=== PATIENT | female | born 1960 | race Caucasian/White ===

== ENCOUNTER 2016-12-16 12:47 | Emergency (ER) | payer OTHER ==
--- NOTE | ~2016-12-16 | CT2 ---
[facility]. [facility] A Service of [facility] RADIOLOGY TEXT RESULTS PATIENT: ANJEL DICKSON LOCATION: SED : 62 UNIT #: [id number] AGE: [address]: Sanchez Barker MD SEX: F ORDER DR: [id number] [place] [id number] E MR#: [id number] Acc #: [id number] NAME: ANJEL DICKSON : 1960 SEX: F STUDY DATE/TIME: 12/16/2016 14:35 UNIT: SED ROOM: STUDY DESCRIPTION: CT Abd and Pelv W Cont Attending Physician: Sanchez Barker M.D. Ordering Physician: Sanchez Barker M.D. Primary Care Physician: Vinicius Hyman M.D. MEDICAL IMAGING REPORT This report is preliminary unless electronic signature is present. EXAM CT abdomen and pelvis with contrast 12/16/2016 INDICATIONS Vomiting and cramping since 07:00 a.m. today, mid to lower abdominal pain for [address] of the abdomen and pelvis was performed following the administration of IV contrast. Coronal and sagittal reformatted images were obtained. This CT exam was performed with one or more of the following radiation dose reduction techniques: automatic exposure control, adjustment of mA and/or kV according to patient size, and iterative reconstruction. No comparisons FINDINGS Lung bases are clear. Focal fatty infiltration of the liver adjacent to the falciform ligament. The gallbladder and spleen are unremarkable. The kidneys are unremarkable. The adrenal glands and pancreas are unremarkable. PELVIS: Colon is unremarkable. The appendix is normal. No free fluid. Remainder of the pelvis is unremarkable. Bone windows demonstrate degenerative changes of the lumbar spine with scoliosis as well as degenerative discogenic sclerosis at multiple levels. IMPRESSION 1. There are no acute findings. 2. Gallbladder and appendix are both normal. No evidence for bowel obstruction. 1. [facility] A Service of [facility] RADIOLOGY TEXT RESULTS PATIENT: ANJEL DICKSON LOCATION: SED : 62 UNIT #: [id number] AGE: [address]: Sanchez Barker MD SEX: F ORDER DR: Dictated by... Bebeto Boyd M.D. THIS IS AN ELECTRONICALLY VERIFIED REPORT Bebeto Boyd M.D. at 12/18/2016 9:07 AM Juancho TD: 12/16/2016 17:42 JOB #: [id number] MEDICAL IMAGING REPORT Page 1 of 1
[~2016-12-16 12:47] MED LIST: AMITRIPTYLINE H25 MG; BP MED; FLEXERIL10 M1 PO; LISINOPRIL PO; LISINOPRIL10 MG PO; LORTAB 5/500 TA1 TA1 PO; LORTAB 7.5-3251 EACH PO; LORTAB 7.5-5001 TAB PO; MOTRIN600 MG; NAPROXEN PO; PREDNISONE PO; TYLENOL #3 PO; VOLTAREN50 MG PO; ZOFRAN ODT4 MG PO; ZOLOFT PO
[2016-12-16] MEDS ORDERED: IBUPROFEN PO (12:49)
[2016-12-16] MEDS ORDERED: NEURONTIN800 MG PO (12:49)
[2016-12-16] MEDS ORDERED: ZOLOFT PO (12:49)
[2016-12-16] MEDS ORDERED: LISINOPRIL20 MG PO (12:50)
[2016-12-16] MEDS ORDERED: PERCOCET5/325 PO (12:50)
[2016-12-16 13:52] LABS: BASOPHIL# 0.1 X10e3 (0-0.3); BASOPHIL% 0.9 % (0-2.5); EOSINOPHIL% 0.1 % (0.0-7.0); HEMATOCRIT 44.1 % (35.0-45.0); HEMOGLOBIN 15.2 gm/dL (12.0-16.0); LYMPHOCYTE# 2.2 X10e3 (1.0-3.5); LYMPHOCYTE% 24.8 % (17.0-45.0); MEAN CELL VOLUME 96.2 FL (83-96); MEAN CORPUSCULAR HEMOGLOBIN 33.2 PG (28-34); MEAN CORPUSCULAR HGB CONC 34.5 g/dL (30-36); MEAN PLATELET VOLUME 7.6 FL (6.5-11.5); MONOCYTE# 0.8 X10e3 (0-1.0); MONOCYTE% 8.8 % (3.0-12.0); NEUTROPHIL# 5.9 X10e3 (1.5-7.1); NEUTROPHIL% 65.4 % (40-75); PLATELET COUNT 400 X10e3 (140-420); RED BLOOD COUNT 4.59 X10e (3.90-5.30); RED CELL DISTRIBUTION WIDTH 13.6 % (11.0-15.5); WHITE BLOOD COUNT 8.9 X10e3 (4.0-10.5)
[2016-12-16 13:57] LABS: DIFF IND NO
[2016-12-16 14:10] LABS: BILIRUBIN, DIRECT 0.2 mg/dL (0.0-0.2); BILIRUBIN,INDIRECT 0.5 mg/dL (0.0-0.9); BILIRUBIN,TOTAL 0.7 mg/dL (0.2-2.0); BUN/CREATININE RATIO 15.71; CALCIUM SERUM 9.4 mg/dL (8.4-10.2); CREATININE SERUM 0.7 mg/dL (0.6-1.4); GLOM FILT RATE Estimated 97.5 mL/min (>60); POTASSIUM 3.1 mmol/L (3.5-5.1); PROTEIN TOTAL SERUM 7.9 g/dL (6.0-8.3)
[2016-12-16 15:34] LABS: URINE APPEARANCE CLEAR; URINE BILIRUBIN NEG (NEG); URINE BLOOD 1+ (NEG); URINE COLOR YELLOW; URINE GLUCOSE NEG (NORM); URINE KETONE NEG (NEG); URINE LEUKOCYTE ESTERASE NEG (NEG); URINE NITRATE NEG (NEG); URINE PH 6.5 (5-8); URINE PROTEIN TRACE (NEG); URINE SPECIFIC GRAVITY <=1.005 (1.003-1.035); URINE UROBILINOGEN 0.2 MG/DL (NORM)
[2016-12-16 15:37] LABS: MICRO INDICATED? YES; URINE SOURCE CLEAN CATCH
[2016-12-16 15:38] LABS: CULTURE INDICATED? NO; URINE BACTERIA NEG (NEG); URINE SQUAMOUS EPITHELIAL CELL FEW /[HPF]; URINE WBC 0-2 /[HPF] (0-5)
[2016-12-16 15:39] LABS: URINE GRANULAR CAST 0-2 /[HPF]; URINE HYALINE CAST 0-2 /[HPF]
== END 2016-12-16 16:07 | disposition home or self-care (01) ==
LOC: SED 12:47
PROVIDERS: Emergency Medicine
DX: K52.9 Noninfective gastroenteritis and colitis, unspecified (principal); E87.6 Hypokalemia; F17.210 Nicotine dependence, cigarettes, uncomplicated; M51.36 Other intervertebral disc degeneration, lumbar region; F31.9 Bipolar disorder, unspecified; Z98.51 Tubal ligation status
CPT/HCPCS: 36415; 74177; 80048; 80076; 81003; 82150; 83690; 85025; 96361; 96374; 96375; 99284; J2270; J2405; Q9967

== ENCOUNTER 2017-01-13 15:43 | Emergency (ER) | payer OTHER ==
--- NOTE | ~2017-01-13 | CR63 ---
[facility]. [facility] A Service [facility] RADIOLOGY TEXT RESULTS PATIENT: ANJEL DICKSON LOCATION: SED : 62 UNIT #: [id number] AGE: [address]: MO MARTI PA-C SEX: F ORDER DR: [id number] [place] [address] [id number] E MR#: [id number] Acc #: [id number] NAME: ANJEL DICKSON : 1960 SEX: F STUDY DATE/TIME: 01/13/2017 15:58 UNIT: SED ROOM: STUDY DESCRIPTION: CR Chest 2 View Attending Physician: Mo Marti Pa-C Ordering Physician: Mo Marti Pa-C Primary Care Physician: Vinicius Hyman M.D. MEDICAL IMAGING REPORT This report is preliminary unless electronic signature is present. EXAM Two-view chest HISTORY 56-year-old male difficulty catching breath, symptoms for [id number] days, smoker. COMPARISON 01/16/2014. FINDINGS 2 views of the chest demonstrate pulmonary hyperinflation, hyperlucency suggesting underlying emphysema. Small amount of right basilar atelectasis. No infiltrates or effusions. Heart, mediastinum and great vessels, bony thorax unremarkable. IMPRESSION Mild emphysematous changes. No acute findings. Dictated by... Renard Boyd M.D. THIS IS AN ELECTRONICALLY VERIFIED REPORT Renard Boyd M.D. at 01/14/2017 2:45 PM BRITTNEY/jose TD: 01/13/2017 16:53 JOB #: [id number] MEDICAL IMAGING REPORT [facility] A Service of [facility] RADIOLOGY TEXT RESULTS PATIENT: ANJEL DICKSON LOCATION: SED : 62 UNIT #: [id number] AGE: [address]: MO MARTI PA-C SEX: F ORDER DR: Page 1 of 1
[~2017-01-13 15:43] MED LIST changes: +IBUPROFEN PO; +LISINOPRIL20 MG PO; +NEURONTIN800 MG PO; +PERCOCET5/325 PO
== END 2017-01-13 17:44 | disposition home or self-care (01) ==
LOC: SED 15:43
DX: R05 Cough (principal); H66.91 Otitis media, unspecified, right ear; F32.9 Major depressive disorder, single episode, unspecified; M54.9 Dorsalgia, unspecified; G89.29 Other chronic pain; Z98.890 Other specified postprocedural states; F17.200 Nicotine dependence, unspecified, uncomplicated; Z85.828 Personal history of other malignant neoplasm of skin
CPT/HCPCS: 71020; 94640; 99283

== ENCOUNTER 2017-02-08 12:56 | Emergency (ER) | payer OTHER ==
[~2017-02-08] VITALS: Ht 162.6 cm; Wt 65.8 kg
--- NOTE | ~2017-02-08 | CR181 ---
[facility] A Service of [facility] RADIOLOGY TEXT RESULTS PATIENT: ANJEL DICKSON LOCATION: SED : 62 UNIT #: [id number] AGE: [address]: Lissa Goodwin SEX: F ORDER DR: [id number] [place] [id number] E MR#: [id number] Acc #: [id number] NAME: ANJEL DICKSON : 1960 SEX: F STUDY DATE/TIME: 02/08/2017 13:39 UNIT: SED ROOM: STUDY DESCRIPTION: CR Lumbar Spine 2 or 3 Views Attending Physician: Lissa Goodwin Pa-C Ordering Physician: Lissa Goodwin Pa-C Primary Care Physician: Vinicius Hyman M.D. MEDICAL IMAGING REPORT This report is preliminary unless electronic signature is present. EXAM Lumbar spine series, 02/08/2017, 1339 hours. CLINICAL HISTORY 56-year-old woman who awoke on 02/07/2017 with back pain after gardening on 02/06/2017. Patient has had previous back problems with prior lumbar surgery. COMPARISON Lumbar spine series, 07/24/2007, and CT abdomen and pelvis with sagittal and coronal reconstructions, 12/16/2016. FINDINGS AP, lateral views of the lumbar spine and a cone lateral view of the lumbosacral junction were performed. There is focal scoliosis convex right in the lower lumbar spine with disc height loss at L2-L3 and rightward subluxation of L3 relative to L2. This curvature and subluxation appears to be new from lumbar spine series 07/24/[address] abdomen and pelvis study of 12/16/2016. There is disc height loss, vacuum phenomena and endplate sclerosis at L2-L3 similar to recent CT. There is degenerative spurring at L4-5 greater than L5-S1; also new from 2006, but similar to CT scan 12/16/2016. Atherosclerotic calcifications are present in the abdominal aorta. IMPRESSION The patient has a rightward scoliosis of the lower lumbar spine with rightward subluxation of L3 relative to L2. There is disc height loss at L2-3 with sclerotic endplate change. There is disc height loss at L4-5 with spurring and endplate sclerosis. These changes do appear similar to CT abdomen and pelvis 12/16/2016, but are new or increased compared to the lumbar spine series of 07/24/2007. [facility] A Service of [facility] RADIOLOGY TEXT RESULTS PATIENT: ANJEL DICKSON [place] [facility] [place] [birth year] UNIT #: [id number] AGE: [address]: Lissa Goodwin SEX: F ORDER DR: Dictated by... Mariposa Can M.D. THIS IS AN ELECTRONICALLY VERIFIED REPORT Mariposa Can M.D. at 02/09/2017 9:11 AM ISMAEL/adrian TD: 02/09/2017 06:51 JOB #: [id number] MEDICAL IMAGING REPORT Page 1 of 1
== END 2017-02-08 14:33 | disposition home or self-care (01) ==
LOC: SED 12:56
DX: M54.5 Low back pain (principal); F32.9 Major depressive disorder, single episode, unspecified; F17.200 Nicotine dependence, unspecified, uncomplicated; Z98.51 Tubal ligation status; Z98.890 Other specified postprocedural states; X50.0XXA Overexertion from strenuous movement or load, initial encounter; Y92.009 Unspecified place in unspecified non-institutional (private) residence as the place of occurrence of the external cause
CPT/HCPCS: 72100; 96372; 99283; J1040; J1885

== ENCOUNTER 2017-03-15 14:23 | Emergency (ER) | payer OTHER ==
[2017-03-15] MEDS ORDERED: FLEXERIL10 MG (14:32)
[2017-03-15 15:05] LABS: BASOPHIL# 0.1 X10e3 (0-0.3); BASOPHIL% 0.9 % (0-2.5); EOSINOPHIL# 0.2 X10e3 (0-0.7); EOSINOPHIL% 1.9 % (0.0-7.0); HEMATOCRIT 39.5 % (35.0-45.0); HEMOGLOBIN 13.4 gm/dL (12.0-16.0); LYMPHOCYTE# 2.1 X10e3 (1.0-3.5); LYMPHOCYTE% 24.2 % (17.0-45.0); MEAN CELL VOLUME 96.2 FL (83-96); MEAN CORPUSCULAR HEMOGLOBIN 32.5 PG (28-34); MEAN CORPUSCULAR HGB CONC 33.8 g/dL (30-36); MEAN PLATELET VOLUME 8.2 FL (6.5-11.5); MONOCYTE# 0.9 X10e3 (0-1.0); MONOCYTE% 10.1 % (3.0-12.0); NEUTROPHIL# 5.3 X10e3 (1.5-7.1); NEUTROPHIL% 62.9 % (40-75); PLATELET COUNT 381 X10e3 (140-420); RED BLOOD COUNT 4.11 X10e (3.90-5.30); RED CELL DISTRIBUTION WIDTH 13.2 % (11.0-15.5); WHITE BLOOD COUNT 8.5 X10e3 (4.0-10.5)
[2017-03-15 15:06] LABS: DIFF IND NO; URINE APPEARANCE CLEAR; URINE BLOOD NEG (NEG); URINE COLOR YELLOW; URINE GLUCOSE NEG (NORM); URINE KETONE TRACE (NEG); URINE LEUKOCYTE ESTERASE 3+ (NEG); URINE NITRATE NEG (NEG); URINE PROTEIN TRACE (NEG); URINE SOURCE CLEAN CATCH; URINE UROBILINOGEN 0.2 MG/DL (NORM)
[2017-03-15 15:10] LABS: MICRO INDICATED? YES; URINE BILIRUBIN NEG (NEG)
[2017-03-15 15:11] LABS: CULTURE INDICATED? NO; URINE BACTERIA NEG (NEG); URINE RBC NEG /[HPF] (0-2); URINE SQUAMOUS EPITHELIAL CELL FEW /[HPF]; URINE WBC 0-2 /[HPF] (0-5)
[2017-03-15 15:23] LABS: ALBUMIN SERUM 4.2 g/dL (3.5-5.0); BILIRUBIN, DIRECT 0.2 mg/dL (0.0-0.2); BILIRUBIN,INDIRECT 0.4 mg/dL (0.0-0.9); BILIRUBIN,TOTAL 0.6 mg/dL (0.2-2.0); BUN/CREATININE RATIO 12.14; CALCIUM SERUM 8.8 mg/dL (8.4-10.2); CREATININE SERUM 1.4 mg/dL (0.6-1.4); GLOM FILT RATE Estimated 41.9 mL/min (>60); POTASSIUM 3.5 mmol/L (3.5-5.1); PROTEIN TOTAL SERUM 7.3 g/dL (6.0-8.3)
== END 2017-03-15 16:35 | disposition home or self-care (01) ==
LOC: SED 14:23
PROVIDERS: Emergency Medicine
DX: K85.90 Acute pancreatitis without necrosis or infection, unspecified (principal); I10 Essential (primary) hypertension
CPT/HCPCS: 36415; 80048; 80076; 81003; 83690; 85025; 96360; 99284

== ENCOUNTER 2017-03-24 15:13 | Emergency (ER) | payer OTHER ==
--- NOTE | ~2017-03-24 | EKG ---
PATIENT: ANJEL DICKSON UNIT #: [id number] Ventricular Rate: 116 BPM Atrial Rate: 116 BPM P-R Interval: 154 ms QRS Duration: 86 ms Q-T Interval: 336 ms QTC Calculation(Bezet): 467 ms P Burson: 69 degrees Calculated R Burson: 30 degrees Calculated T Burson: 66 degrees Diagnosis Line: Sinus tachycardia Diagnosis Line: Possible Left atrial enlargement Diagnosis Line: Borderline ECG Diagnosis Line: When compared with ECG of 16-JAN-2014 13:41, Diagnosis Line: No significant change was found Diagnosis Line: Confirmed by SOHAN FRANCISCO MD ([id number]) on Diagnosis Line: 04/12/2017 6:28:46 AM INTERPRETING MD: MOLLY
[~2017-03-24 15:13] MED LIST changes: +FLEXERIL10 MG
[2017-03-24 16:12] LABS: BASOPHIL% 0.2 % (0-2.5); EOSINOPHIL# 0.2 X10e3 (0-0.7); EOSINOPHIL% 1.9 % (0.0-7.0); HEMATOCRIT 39.9 % (35.0-45.0); HEMOGLOBIN 13.8 gm/dL (12.0-16.0); LYMPHOCYTE# 2.1 X10e3 (1.0-3.5); LYMPHOCYTE% 23.4 % (17.0-45.0); MEAN CELL VOLUME 95.4 FL (83-96); MEAN CORPUSCULAR HEMOGLOBIN 32.9 PG (28-34); MEAN CORPUSCULAR HGB CONC 34.5 g/dL (30-36); MEAN PLATELET VOLUME 7.8 FL (6.5-11.5); MONOCYTE# 0.8 X10e3 (0-1.0); MONOCYTE% 8.7 % (3.0-12.0); NEUTROPHIL% 65.8 % (40-75); PLATELET COUNT 375 X10e3 (140-420); RED BLOOD COUNT 4.18 X10e (3.90-5.30); RED CELL DISTRIBUTION WIDTH 13.1 % (11.0-15.5); WHITE BLOOD COUNT 9.1 X10e3 (4.0-10.5)
[2017-03-24 16:22] LABS: ALBUMIN SERUM 4.7 g/dL (3.5-5.0); BILIRUBIN, DIRECT 0.1 mg/dL (0.0-0.2); BILIRUBIN,INDIRECT 0.6 mg/dL (0.0-0.9); BILIRUBIN,TOTAL 0.7 mg/dL (0.2-2.0); BUN/CREATININE RATIO 12.5; CALCIUM SERUM 9.4 mg/dL (8.4-10.2); CREATININE SERUM 1.2 mg/dL (0.6-1.4); GLOM FILT RATE Estimated 50.5 mL/min (>60); POTASSIUM 3.5 mmol/L (3.5-5.1); PROTEIN TOTAL SERUM 7.6 g/dL (6.0-8.3)
[2017-03-24 16:26] LABS: DIFF IND NO
[2017-03-24 16:47] LABS: URINE SOURCE CLEAN CATCH
[2017-03-24 16:49] LABS: URINE APPEARANCE CLEAR; URINE BLOOD NEG (NEG); URINE COLOR YELLOW; URINE GLUCOSE NEG (NORM); URINE KETONE TRACE (NEG); URINE LEUKOCYTE ESTERASE 2+ (NEG); URINE NITRATE NEG (NEG); URINE PH 5.5 (5-8); URINE PROTEIN 2+ (NEG); URINE SPECIFIC GRAVITY >=1.030 (1.003-1.035); URINE UROBILINOGEN 0.2 MG/DL (NORM)
[2017-03-24 16:50] LABS: MICRO INDICATED? YES; URINE BILIRUBIN NEG (NEG)
[2017-03-24 17:04] LABS: CULTURE INDICATED? YES; URINE BACTERIA 1+ (NEG); URINE RBC 0-2 /[HPF] (0-2); URINE SQUAMOUS EPITHELIAL CELL FEW /[HPF]
[2017-03-24 17:05] LABS: URINE HYALINE CAST 25-50 /[HPF]
== END 2017-03-24 18:28 | disposition home or self-care (01) ==
LOC: SED 15:13
PROVIDERS: Emergency Medicine
DX: E86.0 Dehydration (principal); Z79.899 Other long term (current) drug therapy
CPT/HCPCS: 36415; 80048; 80076; 81003; 85025; 87086; 87088; 87186; 93005; 96361; 96374; 99284